=== PATIENT | female | born 1990 | race Caucasian/White ===

== ENCOUNTER 2016-12-25 11:25 | Emergency (ER) | payer MEDICAID, OTHER ==
[~2016-12-25] VITALS: Ht 160 cm; Wt 43.1 kg
[~2016-12-25 11:25] MED LIST: BENZ56AE TP; DBC1O30 TOP; DCS100C PO; IBP600T1 PO; NAPR-243 PO; OMEP1CAP15 PO; OXYC1TAB87 PO; PRNMV1T PO; PROP1TAB77 PO; WTCHGPD TOP; [UNRECOGNIZED DRUG - OTHER]; morphine INJ 10 MG/ML 1ML (SYR OR VIAL) ONE
--- OUTSIDE RECORDS SUMMARY | 2016-12-25 11:30 | XMS REPORT | Continuity of Care Document ---
Author Author [facility] Organization [facility] Address Unknown Phone Unavailable Allergies Active Description Code Type Severity Reaction Onset Reported/Identified Relationship to Patient Clinical Status Yes NKANo Known Allergies NKA Miscellaneous Allergy Mild N/A 07/16/2008 Medications Problems Date Dx Coded Attending Type Code Diagnosis Diagnosed By 07/17/2014 GAURAV QUEEN DO Ot 719.41 Procedures Results Encounters ACCT No. Visit Date/Time Discharge Status Pt. Type Provider Facility Loc./Unit Complaint [id number] 07/13/2014 19:17:00 2014 20:39:00 DIS Emergency GAURAV QUEEN DO [facility] ER [id number] 08/10/2012 19:01:00 2012 13:45:00 DIS Inpatient
[2016-12-25] MEDS ORDERED: NS IV 1000 ML 1,000 ML IV ONE (11:34)
[2016-12-25 11:41] LABS: MEAN PLATELET VOLUME 9.2 FL (7.4-10.4); RED BLOOD COUNT 4.08 10^6/uL (4.35-5.85); RED CELL DISTRIBUTION WIDTH 14.7 % (10.0-14.5); WHITE BLOOD COUNT 4.8 10^3/uL (4.3-11.0)
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
[2016-12-25] MEDS ORDERED: morphine INJ 10 MG/ML 1ML (SYR OR VIAL) IVP STA (11:44)
--- NOTE | 2016-12-25 11:54 | Diagnostic Imaging Report ---
EXAMINATION: Portable erect AP chest obtained at 1137h. INDICATION: Chest pain There are no prior studies available for comparison. Heart size is within normal limits. The lungs are clear. There is no evidence of pneumonia or for a pleural effusion. There is no sign of a pneumothorax either. The mediastinum is not widened. The osseous structures are intact. IMPRESSION: There is no evidence of an acute cardiopulmonary abnormality. Dictated by: Dictated on workstation # [id number]
[2016-12-25 11:59] LABS: ALANINE AMINOTRANSFERASE 14 U/L (0-55); ALBUMIN 4.5 GM/DL (3.2-4.5); ALCOHOL 11 MG/DL (<10); ANION GAP 11 MMOL/L (5-14); ASPARTATE AMINO TRANSFERASE 25 U/L (5-34); BILIRUBIN,DIRECT 0.3 MG/DL (0.0-0.3); BILIRUBIN,INDIRECT 0.5 MG/DL; BILIRUBIN,TOTAL 0.8 MG/DL (0.1-1.0); BLOOD UREA NITROGEN 8 MG/DL (7-18); BUN/CREATININE RATIO 10; CALCIUM 9.5 MG/DL (8.5-10.1); CARBON DIOXIDE 23 MMOL/L (21-32); CHLORIDE 105 MMOL/L (98-107); CREATININE SERUM 0.83 MG/DL (0.60-1.30); GFR ESTIMATED > 60; GLUCOSE 98 MG/DL (70-105); POTASSIUM 3.2 MMOL/L (3.6-5.0); SODIUM 139 MMOL/L (135-145); TOTAL PROTEIN 7.5 GM/DL (6.4-8.2)
[2016-12-25] MEDS ORDERED: KETOROLAC 30 MG/ML VIAL IVP STA (12:00)
[2016-12-25] MEDS ORDERED: HYDR-3812 PO (14:01)
[2016-12-25 14:29] VITALS: BP 131/92
[2016-12-25] MEDS ORDERED: morphine INJ 10 MG/ML 1ML (SYR OR VIAL) IVP ONE (14:45)
== END 2016-12-25 14:29 | disposition home or self-care (01) ==
LOC: EDUNIT# 11:25 → ER 11:27
DX: T21.11XA Burn of first degree of chest wall, initial encounter (principal); T22.052A Burn of unspecified degree of left shoulder, initial encounter; T31.10 Burns involving 10-19% of body surface with 0% to 9% third degree burns; F17.210 Nicotine dependence, cigarettes, uncomplicated; X08.8XXA Exposure to other specified smoke, fire and flames, initial encounter
CPT/HCPCS: 36415; 71010; 80048; 80076; 80320; 84703; 85027; 93041

== ENCOUNTER 2017-06-10 11:08 | Emergency (ER) | payer SELFPAY ==
[~2017-06-10] VITALS: Ht 157.5 cm; Wt 45.4 kg
[~2017-06-10 11:08] MED LIST changes: +ACHD5005 PO; -morphine INJ 10 MG/ML 1ML (SYR OR VIAL) ONE
--- NOTE | 2017-06-10 11:47 | ED Lower Extremity ---
General Chief Complaint: Lower Extremity Stated Complaint: RT ANKLE PAIN Nursing Triage Note: c/o right ankle pain. Mild bruising noted lateral side. Pt twisted her ankle stepping off a porch. Nursing Sepsis Screen: No Definite Risk Source: patient Exam Limitations: no limitations History of Present Illness Date Seen by Provider: Jun 10, 2017 Time Seen by Provider: 11:47 Initial Comments 26-year-old female patient presents to the emergency department with complaints of right ankle pain after twisting it stepping off of her porch today. Does complain of mild bruising. Onset: this morning (0900) Pain/Injury Location: right ankle Method of Injury: twisted Modifying Factors: Worse With Movement, Worse With Other (worse with ambulation ) Allergies and Home Medications Allergies Coded Allergies: NKANo Known Allergies (Unverified Allergy, Mild, 07/16/08) Home Medications Benzocaine/Menthol 56 Ml Aerosol, 56 ML TP UD PRN Prescribed by: JOAQUIN COLVIN on 08/13/1237 Dibucaine 30 Gm Oint, 0 GM TOP UD PRN Prescribed by: JOAQUIN COLVIN on 08/13/12 0737 Docusate Sodium 100 Mg Cap, 100 MG PO BID Prescribed by: JOAQUIN COLVIN on 08/13/12 0737 Hydrocodone Bit/Acetaminophen 1 Each Tablet, 1-2 EACH PO Q6H PRN for PAIN- MODERATE Prescribed by: KARLENE PHILLIP on 12/25/16 1401 Ibuprofen 600 Mg Tab, 600 MG PO Q6H Prescribed by: JOAQUIN COLVIN on 08/13/12 0737 Meloxicam 7.5 Mg Tablet, 7.5 MG PO BID PRN for pain Prescribed by: LÓPEZ ORONA on 06/10/17 1216 Multivit/Min/Fol Ac/Iron/Pren 1 Ea Tab, 1 EA PO DAILY@0700 Prescribed by: JOAQUIN COLVIN on 08/13/12 0737 Omeprazole/Sodium Bicarbonate 1 Each Capsule, 1 EACH PO DAILY, (Reported) Oxycodone Hcl/Acetaminophen 1 Tab Tablet, 0 TAB PO Q3H PRN Prescribed by: JOAQUIN COLVIN on 08/13/12 0737 Tramadol HCl 50 Mg Tablet, 50 MG PO Q6H PRN for pain Prescribed by: LÓPEZ ORONA on 06/10/17 1217 Witch Hui/Glycerin 40 Ea Jar, 1 EA TOP UD PRN Prescribed by: JOAQUIN COLVIN on 08/13/12 0737 Patient Home Medication List Home Medication List Reviewed: Yes Constitutional: no symptoms reported Musculoskeletal: see HPI, No back pain, joint pain (right ankle pain), joint swelling (right ankle swelling), No neck pain Skin: see HPI Psychiatric/Neurological: Denies Numbness, Denies Paresthesia, Denies Tingling , Denies Weakness All Other Systems Reviewed Negative Unless Noted: Yes (Negative excepted noted.) Past Wfgvwow-Rqtsun-Hepawz Hx Patient Social History Alcohol Use: Denies Use Number of Drinks Today: AA Alcohol Beverage of Choice: Beer Recreational Drug Use: No Type Used: Cigarettes Recent Foreign Travel: No Contact w/Someone Who Travel: No Recent Infectious Disease Expo: No Immunizations Up To Date Tetanus Booster (TDap): More than 5yrs PED Vaccines UTD: Yes Seasonal Allergies Seasonal Allergies: Yes Surgeries History of Surgeries: Yes (DENTAL) Respiratory History of Respiratory Disorde: No Cardiovascular History of Cardiac Disorders: No Neurological History of Neurological Disord: No Reproductive System Hx Reproductive Disorders: No Sexually Transmitted Disease: No HIV/AIDS: No Female Reproductive Disorders: Denies Genitourinary History of Genitourinary Disor: No Gastrointestinal History of Gastrointestinal Di: No Musculoskeletal History of Musculoskeletal Dis: No Endocrine History of Endocrine Disorders: No HEENT History of HEENT Disorders: No Cancer History of Cancer: No Psychosocial History of Psychiatric Problem: No Integumentary History of Skin or Integumenta: No Blood Transfusions History of Blood Disorders: No Adverse Reaction to a Blood Tr: No Reviewed Nursing Assessment Reviewed/Agree w Nursing PMH: Yes Family Medical History Significant Family History: No Pertinent Family Hx Physical Exam Vital Signs Vital Signs - First Documented 06/10/17 11:24 Temp 98.4 Pulse 107 Resp 16 B/P (MAP) 130/93 (105) Pulse Ox 98 Capillary Refill : Less Than 3 Seconds General Appearance: WD/WN, no apparent distress Cardiovascular: normal peripheral pulses, no edema Legs: bilateral leg non-tender, bilateral leg normal inspection, bilateral leg normal range of motion, bilateral leg no evidence of injury Knees: bilateral knee non-tender, bilateral knee normal inspection, bilateral knee normal range of motion, bilateral knee no evidence of injury Ankles: left ankle non-tender, bilateral ankle normal inspection, bilateral ankle normal range of motion, bilateral ankle no evidence of injury, right ankle pain, right ankle soft tissue tenderness (soft tissue tenderness noted inferior to the right lateral malleolus), right ankle swelling (mild swelling noted to the inferior right lateral malleolus) Feet: left foot non-tender, left foot normal inspection, bilateral foot normal range of motion, left foot no evidence of injury, right foot ecchymosis (faint ecchymosis noted to the right proximal, lateral dorsal foot.), right foot pain, right foot soft tissue tenderness (proximal right dorsal foot), right foot swelling (very faint swelling of the right proximal dorsal lateral foot) Neurologic/Tendon: normal sensation, normal motor functions, normal tendon functions, responds to pain, no evidence tendon injury Neurologic/Psychiatric: no motor/sensory deficits, alert, normal mood/affect, oriented x 3 Skin: normal color, warm/dry, ecchymosis (faint ecchymosis noted to the right proximal, lateral dorsal foot.) Progress/Results/Core Measures Results/Orders My Orders Orders - LÓPEZ ORNOA Ibuprofen Tablet (Motrin Tablet) (06/10/17 12:19) Vital Signs/I&O Vital Sign - Last 12Hours 06/10/17 11:24 Temp 98.4 Pulse 107 Resp 16 B/P (MAP) 130/93 (105) Pulse Ox 98 Blood Pressure Mean: 105 Diagnostic Imaging Diagonstic Imaging: Xray Plain Films/CT/US/NM/MRI: ankle (rt) Comments Findings: Three views of the right ankle were obtained. The alignment is normal. Ankle mortise is well maintained. The talar dome is smooth. No fracture or dislocation is identified. Impression: No acute bony abnormality is detected. Dictated on workstation # [id number] Reviewed: Reviewed by Me (radiology report reviewed by me) Departure Communication (Admissions) Progress Notes Diagnostic findings discussed with the patient. 3 inch Cyrus wrap applied to the patient's right ankle and foot. Plan for discharge to home. Patient is driving herself home from the emergency department. Impression Impression: Primary Impression: Sprain and strain of foot Additional Impression: Sprain of ankle Qualified Codes: S93.401A - Sprain of unspecified ligament of right ankle, initial encounter Disposition: HOME, SELF-CARE Condition: Improved Departure-Patient Inst. Decision time for Depature: 12:15 Referrals: NO,LOCAL PHYSICIAN (PCP/Family) Primary Care Physician Patient Instructions: Ankle Sprain (DC) Add. Discharge Instructions: All discharge instructions reviewed with patient and/or family. Voiced understanding. Medications as instructed. Tylenol extra strength over-the- counter as directed for pain. Elevate the right foot and ankle on pillows, ice pack for 20 minute intervals times to 3 days. Cyrus wrap as instructed. ASO brace as instructed. Follow-up with your family practitioner for recheck as an outpatient if no improvement in symptoms in 7-10 days. Return to the emergency department for worsened symptoms or any other concerns. Scripts Tramadol HCl (Tramadol HCl) 50 Mg Tablet 50 MG PO Q6H Y for pain, #14 TAB 0 Refills Prov: LÓPEZ ORONA 06/10/17 Meloxicam (Meloxicam) 7.5 Mg Tablet 7.5 MG PO BID Y for pain, #14 TAB 0 Refills Prov: LÓPEZ ORONA 06/10/17 Images Extremities-Lower 1 - Ecchymosis, Swelling, Tenderness 2 - Swelling, Tenderness LÓPEZ ORONA Jun 10, 2017 11:47
--- NOTE | 2017-06-10 11:57 | Diagnostic Imaging Report ---
Indication: Rolled right ankle. Time of exam: 12:02 PM Findings: Three views of the right ankle were obtained. The alignment is normal. Ankle mortise is well maintained. The talar dome is smooth. No fracture or dislocation is identified. Impression: No acute bony abnormality is detected. Dictated by: Dictated on workstation # [id number]
[2017-06-10] MEDS ORDERED: MELO7.5T46 PO (12:16)
[2017-06-10] MEDS ORDERED: TRAM50TA2 PO (12:17)
[2017-06-10] MEDS ORDERED: IBUPROFEN TABLET 200 MG TAB PO STA (12:19)
[2017-06-10 12:35] VITALS: BP 118/70
== END 2017-06-10 12:35 | disposition home or self-care (01) ==
LOC: EDUNIT# 11:08 → ER 11:10
DX: S93.601A Unspecified sprain of right foot, initial encounter (principal); S93.401A Sprain of unspecified ligament of right ankle, initial encounter; Z98.818 Other dental procedure status; Z98.890 Other specified postprocedural states; X50.1XXA Overexertion from prolonged static or awkward postures, initial encounter; W17.89XA Other fall from one level to another, initial encounter; Y92.008 Other place in unspecified non-institutional (private) residence as the place of occurrence of the external cause
CPT/HCPCS: 73610

== ENCOUNTER 2018-07-01 11:53 | Emergency (ER) | payer SELFPAY ==
[~2018-07-01] VITALS: Ht 157.5 cm; Wt 46.3 kg
[~2018-07-01 11:53] MED LIST changes: +MELO7.5T46 PO; +TRAM50TA2 PO
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
--- NOTE | 2018-07-01 13:42 | Diagnostic Imaging Report ---
CLINICAL INDICATION: Patient reports coughing and hacking throughout the night with pain and sensitivity around upper lung area. EXAM: Chest x-ray PA and lateral views. COMPARISONS: Chest x-ray dated 12/25/2016. FINDINGS: Lungs/pleura: There is interval development of a small to moderate-sized left lung base infiltrate. There is a small left pleural effusion. The remainder of the lungs is clear. There is no pneumothorax. There is no right pleural effusion. Mediastinum: Unremarkable. Pulmonary vasculature: Unremarkable. Heart: Unremarkable. Bones/extrathoracic soft tissue: Unremarkable. IMPRESSION: Left lower lobe pneumonia and small left pleural effusion. Dictated by: Dictated on workstation # [id number]
[2018-07-01] MEDS ORDERED: NS IV 1000 ML 1,000 ML IV ONE ×2 (13:44→16:16)
[2018-07-01 13:53] LABS: BASOPHILS % (AUTO) 0 % (0-10); EOSINOPHILS # (AUTO) 0.2 10^3/uL (0.0-0.3); EOSINOPHILS % (AUTO) 2 % (0-10); HEMATOCRIT 39 % (35-52); HEMOGLOBIN 13.5 G/DL (11.5-16.0); LYMPHOCYTES # (AUTO) 1.3 X 10^3 (1.0-4.0); LYMPHOCYTES % (AUTO) 11 % (12-44); MEAN CORPUSCULAR HEMOGLOBIN 32 PG (25-34); MEAN CORPUSCULAR HGB CONC 35 G/DL (32-36); MEAN CORPUSCULAR VOLUME 92 FL (80-99); MEAN PLATELET VOLUME 9.4 FL (7.4-10.4); MONOCYTES # (AUTO) 0.9 X 10^3 (0.0-1.0); MONOCYTES % (AUTO) 7 % (0-12); NEUTROPHILS # (AUTO) 10.1 X 10^3 (1.8-7.8); NEUTROPHILS % (AUTO) 80 % (42-75); PLATELET COUNT 323 10^3/uL (130-400); RED CELL DISTRIBUTION WIDTH 14.1 % (10.0-14.5); WHITE BLOOD COUNT 12.6 10^3/uL (4.3-11.0)
[2018-07-01] MEDS ORDERED: cefTRIAXone FOR IV USE 1,000 MG in WATER (STERILE) FOR INJECTION 10 ML IV ONE (14:00)
--- NOTE | 2018-07-01 14:18 | NUR ---
LAB HERE TO DRAW 2ND BLOOD CULTURE
[2018-07-01 14:24] LABS: BUN/CREATININE RATIO 10; CALCIUM 9.9 MG/DL (8.5-10.1); CARBON DIOXIDE 29 MMOL/L (21-32); CHLORIDE 102 MMOL/L (98-107); CREATININE SERUM 0.73 MG/DL (0.60-1.30); GFR ESTIMATED > 60; GLUCOSE 86 MG/DL (70-105); POTASSIUM 3.6 MMOL/L (3.6-5.0); SODIUM 140 MMOL/L (135-145)
[2018-07-01] MEDS ORDERED: KETOROLAC 30 MG/ML VIAL IVP ONE (14:30)
--- NOTE | 2018-07-01 14:30 | ED General ---
General Chief Complaint: General Problems/Pain Stated Complaint: COUGH;CHEST CONGESTION Nursing Triage Note: AMB TO ROOM WITH COUGH AND CONGESTION FOR 1 WEEK. HAS PAIN IN HIS L SHOULDER FROM COUGHING AND TENDER TO TOUCH TOOK ASA. Nursing Sepsis Screen: No Definite Risk Source of Information: Patient Exam Limitations: No Limitations History of Present Illness Date Seen by Provider: Jul 01, 2018 Time Seen by Provider: 13:10 Initial Comments This 27-year-old young lady presents to emergency room with complaints of pain in the left upper chest around the clavicle and radiating up into the neck. That pain has been present for 2 days. She has had cough and congestion for about a week. She denies any fever. She is taking Claritin, Benadryl, and aspirin to treat her symptoms assuming that it was largely caused by allergies. She reports shortness of air. She does have some increase in pain with coughing and deep inspiration. Her primary care provider is Dr. Colvin. She is notably tachycardic with a heart rate in the 120s on assessment. Allergies and Home Medications Allergies Coded Allergies: Eligio Known Allergies (Unverified Allergy, Mild, 07/16/08) Home Medications Azithromycin 250 Mg Tablet, 250 MG PO DAILY Start 07/02/18 Prescribed by: REMA LAZAR on 07/01/181717 Cefdinir 300 Mg Capsule, 300 MG PO BID Prescribed by: REMA LAZAR on 07/01/181717 Patient Home Medication List Home Medication List Reviewed: Yes Review of Systems Review of Systems Constitutional: no symptoms reported EENTM: no symptoms reported Respiratory: see HPI Cardiovascular: see HPI Gastrointestinal: no symptoms reported Genitourinary: no symptoms reported : No Musculoskeletal: see HPI Skin: no symptoms reported Psychiatric/Neurological: No Symptoms Reported Hematologic/Lymphatic: No Symptoms Reported Past Ekrcwxp-Uoamsy-Tpwqev Hx Past Med/Social Hx: Reviewed and Corrections made Patient Social History Alcohol Use: Occasionally Uses Number of Drinks Today: AA Alcohol Beverage of Choice: Beer Recreational Drug Use: No Smoking Status: Current Everyday Smoker Type Used: Cigarettes Recent Foreign Travel: No Contact w/Someone Who Travel: No Recent Infectious Disease Expo: No Immunizations Up To Date Tetanus Booster (TDap): More than 5yrs PED Vaccines UTD: Yes Seasonal Allergies Seasonal Allergies: Yes Past Medical History Surgeries: Yes (DENTAL) Respiratory: No Cardiac: No Neurological: No : No Last Menstrual Period: Jun 28, 2018 Reproductive Disorders: No Female Reproductive Disorders: Denies Sexually Transmitted Disease: No HIV/AIDS: No Genitourinary: No Gastrointestinal: No Musculoskeletal: No Endocrine: No HEENT: No Cancer: No Psychosocial: No Integumentary: No Blood Disorders: No Adverse Reaction/Blood Tranf: No Family Medical History No Pertinent Family Hx Physical Exam Vital Signs Vital Signs - First Documented 07/01/18 12:45 Pulse 120 Resp 18 B/P (MAP) 107/74 (85) Pulse Ox 98 O2 Delivery Room Air Capillary Refill : Less Than 3 Seconds Height, Weight, BMI Height: 5'2.00" Weight: 102lbs. oz. [id number]; 14.06 BMI Method:Stated General Appearance: No Apparent Distress, WD/WN, Thin HEENT: PERRL/EOMI, Normal ENT Inspection, Pharynx Normal Neck: Other (tense tender musculature in the left lateral neck) Respiratory: No Accessory Muscle Use, No Respiratory Distress, Pleural Rub (on the left), Wheezing (very slight on the left) Cardiovascular: No Edema, No Murmur, Tachycardia Gastrointestinal: Normal Bowel Sounds, Non Tender Extremity: Normal Inspection, Non Tender, No Calf Tenderness, No Pedal Edema, Other (negative [place]) Neurologic/Psychiatric: Alert, Oriented x3, No Motor/Sensory Deficits, Normal Mood/Affect, punch box tender II-XII Norm as Tested Skin: Normal Color, Warm/Dry Focused Exam Lactate Level 07/01/18 14:10: Lactic Acid Level 0.79 Lactic Acid Level Progress/Results/Core Measures Suspected Sepsis Recent Fever Within 48 Hours: No Infection Criteria Present: None New/Unexplained Altered Menta: No Sepsis Screen: No Definite Risk SIRS Temperature: Pulse: 120 Respiratory Rate: 18 Laboratory Tests 07/01/18 13:40: White Blood Count 12.6H Blood Pressure 107 /74 Mean: 85 07/01/18 14:10: Lactic Acid Level 0.79 Laboratory Tests 07/01/18 13:40: Creatinine 0.73, Platelet Count 323 Results/Orders Lab Results Laboratory Tests Test 07/01/18 13:40 07/01/18 14:10 07/01/18 14:20 Range/Units White Blood Count 12.6 H 4.3-11.0 10^3/uL Red Blood Count 4.22 L 4.35-5.85 10^6/uL Hemoglobin 13.5 11.5-16.0 G/DL Hematocrit 39 35-52 % Mean Corpuscular Volume 92 80-99 FL Mean Corpuscular Hemoglobin 32 25-34 PG Mean Corpuscular Hemoglobin Concent 35 32-36 G/DL Red Cell Distribution Width 14.1 10.0-14.5 % Platelet Count 323 130-400 10^3/uL Mean Platelet Volume 9.4 7.4-10.4 FL Neutrophils (%) (Auto) 80 H 42-75 % Lymphocytes (%) (Auto) 11 L 12-44 % Monocytes (%) (Auto) 7 0-12 % Eosinophils (%) (Auto) 2 0-10 % Basophils (%) (Auto) 0 0-10 % Neutrophils # (Auto) 10.1 H 1.8-7.8 X 10^3 Lymphocytes # (Auto) 1.3 1.0-4.0 X 10^3 Monocytes # (Auto) 0.9 0.0-1.0 X 10^3 Eosinophils # (Auto) 0.2 0.0-0.3 10^3/uL Basophils # (Auto) 0.0 0.0-0.1 10^3/uL Sodium Level 140 135-145 MMOL/L Potassium Level 3.6 3.6-5.0 MMOL/L Chloride Level 102 98-107 MMOL/L Carbon Dioxide Level 29 21-32 MMOL/L Anion Gap 9 5-14 MMOL/L Blood Urea Nitrogen 7 7-18 MG/DL Creatinine 0.73 0.60-1.30 MG/DL Estimat Glomerular Filtration Rate > 60 BUN/Creatinine Ratio 10 Glucose Level 86 70-105 MG/DL Calcium Level 9.9 8.5-10.1 MG/DL Lactic Acid Level 0.79 0.50-2.00 MMOL/L D-Dimer 1.14 H 0.00-0.49 UG/ML My Orders Orders - REMA DEMARCO MD Chest Pa/Lat (2 View) (07/01/18 13:18) Basic Metabolic Panel (07/01/18 13:44) Cbc With Automated Diff (07/01/18 13:44) Ed Iv/Invasive Line Start (07/01/18 13:44) Ns Iv 1000 Ml (Sodium Chloride 0.9%) (07/01/18 13:44) Fibrin Degradation Products (07/01/18 13:44) Blood Culture (07/01/18 13:52) Lactic Acid Analyzer (07/01/18 13:52) Ceftriaxone For Iv Use (Rocephin For I (07/01/18 14:00) Ketorolac Injection (Toradol Injection) (07/01/18 14:30) Ct Angio Chest W (07/01/18 15:00) Iohexol Injection (Omnipaque 350 Mg/Ml 1 (07/01/18 15:15) Received Contrast (Hold Metformin- Contr (07/01/18 15:15) Azithromycin Injection (Zithromax Inject (07/01/18 16:30) Ns Iv 1000 Ml (Sodium Chloride 0.9%) (07/01/18 16:16) Ondansetron Injection (Zofran Injectio (07/01/18 17:45) Medications Given in ED Current Medications Medications Dose Ordered Sig/Malka Route Start Time Stop Time Status Last Admin Dose Admin Azithromycin 500 mg/Sodium Chloride 250 ml @ 250 mls/hr ONCE ONCE IV 07/01/18 16:30 07/01/18 17:29 DC 07/01/18 16:34 250 MLS/HR Ceftriaxone Sodium 1000 mg/ Sterile Water 10 ml @ 200 mls/hr ONCE ONCE IV 07/01/18 14:00 07/01/18 14:02 DC 07/01/18 14:32 200 MLS/HR Iohexol 125 ml ONCE ONCE IV 07/01/18 15:15 07/01/18 15:16 DC 07/01/18 15:27 100 ML Ketorolac Tromethamine 15 mg ONCE ONCE IVP 07/01/18 14:30 07/01/18 14:31 DC 07/01/18 14:30 15 MG Ondansetron HCl 4 mg ONCE ONCE IVP 07/01/18 17:45 07/01/18 17:46 DC 07/01/18 17:41 4 MG Sodium Chloride 1,000 ml @ 0 mls/hr Q0M ONCE IV 07/01/18 13:44 07/01/18 13:49 DC 07/01/18 14:03 1,000 MLS/HR Sodium Chloride 1,000 ml @ 0 mls/hr Q0M ONCE IV 07/01/18 16:16 07/01/18 16:17 DC 07/01/18 16:34 1,000 MLS/HR Vital Signs/I&O 07/01/18 07/01/18 07/01/18 12:45 15:54 16:45 Pulse 120 113 120 Resp B/P (MAP) 107/74 (85) 109/70 (83) 104/68 (80) Pulse Ox 98 99 99 O2 Delivery Room Air Room Air Room Air Capillary Refill : Less Than 3 Seconds Blood Pressure Mean: 85 Progress Note : Progress Note Patient's chest pain was initially evaluated by x-ray. She was found to have a left lower lobe pneumonia. This did not necessarily correlate with the left upper chest pain. D-dimer was ordered as a further assessment. D-dimer was elevated and CT angiogram was obtained. CT angiogram showed no evidence of pulmonary embolus but did identify a bilateral pneumonia. Patient was aggressively treated with IV doses of Rocephin and azithromycin. She was also given 2 L of IV normal saline. Oxygen saturations stayed near 100 percent throughout her ER stay and she was in no respiratory distress. Pain was treated with Toradol. Nausea was treated with Zofran. Options were discussed and patient was offered admission. She declined but commits to return promptly if she has worsening condition. Diagnostic Imaging Diagonstic Imaging: Xray Plain Films/CT/US/NM/MRI: chest Comments Chest x-ray viewed by me and report reviewed. See report below: NAME: LULY HARMON [facility] REC#: [id number] PT STATUS: REG ER : 1990 PHYSICIAN: REMA DEMARCO MD ADMIT DATE: 07/01/18/ER Draft Date of Exam:07/01/18 CHEST PA/LAT (2 VIEW) CLINICAL INDICATION: Patient reports coughing and hacking throughout the night with pain and sensitivity around upper lung area. EXAM: Chest x-ray PA and lateral views. COMPARISONS: Chest x-ray dated 12/25/2016. FINDINGS: Lungs/pleura: There is interval development of a small to moderate-sized left lung base infiltrate. There is a small left pleural effusion. Remainder of the lungs is clear. There is no pneumothorax. There is no pleural effusion. Mediastinum: Unremarkable. Pulmonary vasculature: Unremarkable. Heart: Unremarkable. Bones/extrathoracic soft tissue: Unremarkable. IMPRESSION: Left lower lobe pneumonia and small left pleural effusion. Dictated on workstation # [id number] Dict: 07/01/18 1335 Trans: 07/01/18 1342 [id number] Interpreted by: ARABELLA BUCHANAN MD Diagonstic Imaging: CT Plain Films/CT/US/NM/MRI: chest Comments CT angiogram of the chest viewed by me and report reviewed. See report below: NAME: LULY HARMON [facility] REC#: [id number] PT STATUS: REG ER : 1990 PHYSICIAN: REMA DEMARCO MD ADMIT DATE: 07/01/18/ER Draft Date of Exam:07/01/18 CT ANGIO CHEST W PROCEDURE: CT angiography of the chest with contrast. TECHNIQUE: Multiple contiguous axial images were obtained through the chest after uneventful bolus administration of intravenous contrast. 2D reconstructed CTA MIP acquisitions were also performed. Auto Exposure Controls were utilized during the CT exam to meet ALARA standards for radiation dose reduction. INDICATION: Cough and left shoulder pain. COMPARISON: No prior studies are available for comparison. FINDINGS: Evaluation of the pulmonary arterial system is without thromboembolism. No definite filling defects are visualized. The thoracic aorta is normal caliber. No dissection is seen. There is no pericardial or pleural fluid identified. Parenchymal evaluation does show central airways to be patent. There are fairly extensive airspace pulmonary infiltrates involving bilateral lower lobes, slightly greater on the left. There is also some parenchymal consolidation in the lingula and patchy airspace infiltrates in the right middle lobe. Bilateral upper lobes appear to be clear. Upper abdomen is unremarkable. IMPRESSION: 1. No evidence of pulmonary embolism. 2. Extensive bilateral airspace pulmonary infiltrates most suggestive of pneumonia. Dictated on workstation # [id number] Dict: 07/01/18 1543 Trans: 07/01/18 1551 [id number] Interpreted by: QUOC ESCALONA MD Departure Impression Primary Impression: Bilateral pneumonia Qualified Codes: J18.1 - Lobar pneumonia, unspecified organism Additional Impression: Atypical chest pain Disposition: HOME, SELF-CARE Condition: Improved Departure-Patient Inst. Decision time for Depature: 16:15 Referrals: NO,LOCAL PHYSICIAN (PCP/Family) Primary Care Physician Patient Instructions: Pneumonia in Adults Add. Discharge Instructions: Stay well hydrated with plenty of clear liquids. Complete the entire course of antibiotics as prescribed. Start your antibiotic pills tomorrow. Return to the emergency room or contact your doctor if you are not improving over the next couple of days or if your symptoms worsen. Try to quit smoking as soon as possible and reduce your smoking as much as possible in the meantime. Seek assistance from your primary care provider if needed to help you quit. For pain or fever or you may take ibuprofen up to 400 mg every 6 hours as needed and/or Tylenol (acetaminophen) up to 650 mg every 6 hours. All discharge instructions reviewed with patient and/or family. Voiced understanding. Scripts Azithromycin (Azithromycin) 250 Mg Tablet 250 MG PO DAILY, #4 TAB Start 07/02/18 Prov: REMA DEMARCO MD 07/01/18 Cefdinir (Cefdinir) 300 Mg Capsule 300 MG PO BID, #20 CAP Prov: REMA DEMARCO MD 07/01/18 Copy Copies To 1: JOAQUIN COLVIN MD, JOSHUA T MD Jul 01, 2018 14:30
[2018-07-01] MEDS ORDERED: HOLD METFORMIN - RECEIVED CONTRAST 20 ML VIAL IV SCH (15:15)
[2018-07-01] MEDS ORDERED: IOHEXOL 350 MG/ML 150 ML (OMNIPAQUE 350) VIAL IV ONE (15:15)
--- NOTE | 2018-07-01 15:33 | NUR ---
BACK FROM CT
--- NOTE | 2018-07-01 15:52 | Diagnostic Imaging Report ---
PROCEDURE: CT angiography of the chest with contrast. TECHNIQUE: Multiple contiguous axial images were obtained through the chest after uneventful bolus administration of intravenous contrast. 2D reconstructed CTA MIP acquisitions were also performed. Auto Exposure Controls were utilized during the CT exam to meet ALARA standards for radiation dose reduction. INDICATION: Cough and left shoulder pain. COMPARISON: No prior studies are available for comparison. FINDINGS: Evaluation of the pulmonary arterial system is without thromboembolism. No definite filling defects are visualized. The thoracic aorta is normal caliber. No dissection is seen. There is no pericardial or pleural fluid identified. Parenchymal evaluation does show central airways to be patent. There are fairly extensive airspace pulmonary infiltrates involving bilateral lower lobes, slightly greater on the left. There is also some parenchymal consolidation in the lingula and patchy airspace infiltrates in the right middle lobe. Bilateral upper lobes appear to be clear. Upper abdomen is unremarkable. IMPRESSION: 1. No evidence of pulmonary embolism. 2. Extensive bilateral airspace pulmonary infiltrates most suggestive of pneumonia. Dictated by: Dictated on workstation # [id number]
[2018-07-01 15:54] VITALS: BP 109/70
[2018-07-01] MEDS ORDERED: AZITHROMYCIN INJECTION 500 MG in NS (IVPB) 250 ML IV ONE (16:30)
[2018-07-01 16:45] VITALS: BP 104/68
--- NOTE | 2018-07-01 16:45 | NUR ---
DR SEAY AWARE OF DICHARGE HR OF 120 AND OK WITH.
[2018-07-01] MEDS ORDERED: CEFD300C3 PO (17:18)
[2018-07-01] MEDS ORDERED: AZIT250T12 PO (17:18)
--- NOTE | 2018-07-01 17:34 | NUR ---
C/O NAUSEA DR NOTIFIED MEDS ORDEED.
[2018-07-01] MEDS ORDERED: ONDANSETRON 4 MG/2 ML (SDV) Z0FRAN IVP ONE (17:45)
== END 2018-07-01 16:45 | disposition home or self-care (01) ==
LOC: EDUNIT# 11:53 → ER 11:54
DX: R07.89 Other chest pain (principal); J18.9 Pneumonia, unspecified organism; F17.210 Nicotine dependence, cigarettes, uncomplicated
CPT/HCPCS: 36415; 71046; 71275; 80048; 83605; 85025; 85379; 87040

== ENCOUNTER 2020-10-29 09:57 | Emergency (ER) | payer SELFPAY ==
[~2020-10-29] VITALS: Ht 157 cm; Wt 45.0 kg
[~2020-10-29 09:57] MED LIST changes: +AZIT250T12 PO; +CEFD300C3 PO; -TRAM50TA2 PO; +TRM50T PO
[2020-10-29] MEDS ORDERED: AUGMENTIN 875 MG TAB (AMOXICILLIN/CLAVULANATE) PO STA (10:07)
[2020-10-29] MEDS ORDERED: AMOX-358 PO (10:13)
--- NOTE | 2020-10-29 10:13 | ED EENT ---
History of Present Illness General Stated Complaint: TOOTH ABCESS Source: patient Exam Limitations: no limitations History of Present Illness Date Seen by Provider: Oct 29, 2020 Time Seen by Provider: 09:59 Initial Comments Patient to the ER by private conveyance from home with chief complaint of 2 days progressively worsening swelling and pain in her premolar left upper maxilla. She has had all of her other teeth extracted posterior to this. She has plans to follow-up with [facility] and George Moreira. She saw Dr. KNOX prior to this but has not followed in the last 2 or 3 years. She is not on any antibiotics. She noticed when she got up this morning to get her daughter ready for school she had a lot of swelling in the left side of her face. No fevers chills nausea vomiting difficulty swallowing or drainage from her mouth. Allergies and Home Medications Allergies Coded Allergies: Eligio Known Allergies (Unverified Allergy, Mild, 07/16/08) Home Medications Azithromycin 250 Mg Tablet, 250 MG PO DAILY Start 07/02/18 Prescribed by: REMA LAZAR on 07/01/188 Cefdinir 300 Mg Capsule, 300 MG PO BID Prescribed by: REMA LAZAR on 07/01/18 1718 Patient Home Medication List Home Medication List Reviewed: Yes Review of Systems Review of Systems Constitutional: No chills, No diaphoresis Eyes: Denies Blindness, Denies Blurred Vision Ears: Denies Dizziness, Denies Pain Nose: denies clots, denies congestion Mouth: denies clots, denies pain Throat: denies pain, denies swelling Respiratory: No cough, No orthopnea Cardiovascular: No chest pain, No palpitations Past Klldwtf-Diifes-Tpdmiz Hx Patient Social History Tobacco Use?: No Use of E-Cig and/or Vaping dev: No Immunizations Up To Date Tetanus Booster (TDap): More than 5yrs PED Vaccines UTD: Yes Seasonal Allergies Seasonal Allergies: Yes Past Medical History Surgeries: Yes (DENTAL) Respiratory: No Cardiac: No Neurological: No Reproductive Disorders: No Female Reproductive Disorders: Denies Sexually Transmitted Disease: No HIV/AIDS: No Genitourinary: No Gastrointestinal: No Musculoskeletal: No Endocrine: No HEENT: No Cancer: No Psychosocial: No Integumentary: No Blood Disorders: No Adverse Reaction/Blood Tranf: No Family Medical History No Pertinent Family Hx Physical Exam Height, Weight, BMI Height: 5'2.00" Weight: 102lbs. oz. [id number]; 14.06 BMI Method:Stated General Appearance: WD/WN, mild distress Eyes: bilateral eye normal inspection, bilateral eye PERRL, bilateral eye EOMI Ears: bilateral ear auricle normal, bilateral ear canal normal Nose: normal inspection; No active bleeding Mouth/Throat: other (Subtle swelling on the left side of her face maxilla with injection erythema surrounding her left upper premolar but no pointing or fluctuance to be drained.) Neck: non-tender, full range of motion, supple, normal inspection Cardiovascular: normal peripheral pulses, regular rate, rhythm Skin: normal color, warm/dry Progress/Results/Core Measures Results/Orders My Orders Orders - SHAR VAN Lidocaine 2% Viscous 15 Ml (Xylocaine Vi (10/29/20 10:15) Amoxicillin/Clavulanate Tablet (Augmenti (10/29/20 10:07) Progress Progress Note : Time: 10:11 Progress Note Viscous lidocaine and Augmentin given her previous history of extensive dental caries. Departure Impression Primary Impression: Dental abscess Disposition: HOME, SELF-CARE Condition: Stable Departure-Patient Inst. Decision time for Depature: 10:11 Referrals: JOAQUIN COLVIN MD (PCP/Family) Primary Care Physician Patient Instructions: Tooth Abscess (DC) Add. Discharge Instructions: Viscous lidocaine 5 cc on gauze applied directly over the tooth every 6 hours as necessary for pain. Tylenol 1000 mg every 8 hours as necessary for pain. Ibuprofen 800 mg every 8 hours as necessary for pain. Warm moist compresses over the face to help reduce pain and swelling. Augmentin 1 tablet twice a day with food for the next 7 to 10 days until the inflammation and infection is under control. Follow-up with a dentist. Scripts Amoxicillin/Potassium Clav (Augmentin 875-125 Tablet) 1 Each Tablet 1 EACH PO BID for 10 Days, #20 TAB 0 Refills Prov: SHAR VAN 10/29/20 Work/School Note: Work Release Form Date Seen in the Emergency Department: Oct 29, 2020 Return to Work: Oct 30, 2020 Restrictions: No Restrictions SHAR VAN Oct 29, 2020 10:13
[2020-10-29] MEDS ORDERED: LIDOCAINE 2% VISCOUS 15 ML UDC PO ONE (10:15)
[2020-10-29 10:17] VITALS: BP 138/87
== END 2020-10-29 10:25 | disposition home or self-care (01) ==
LOC: EDUNIT# 09:57 → ER 09:58
DX: K04.7 Periapical abscess without sinus (principal)
CPT/HCPCS: 99283

== ENCOUNTER 2022-11-28 06:17 | Emergency (ER) | payer OTHER ==
[~2022-11-28 06:17] MED LIST changes: +AMOX-358 PO
== END 2022-11-28 07:04 | disposition left against medical advice (07) ==
LOC: EDUNIT# 06:17 → ER 06:22
DX: M54.9 Dorsalgia, unspecified (principal); V89.2XXA Person injured in unspecified motor-vehicle accident, traffic, initial encounter